=== PATIENT | male | born 1950 | race Caucasian/White ===

== ENCOUNTER 2021-12-28 14:49 | Outpatient (REF) | payer OTHER, SELFPAY ==
[2021-12-28 16:03] LABS: Hematocrit 54.1 % (42.0-52.0)
[2021-12-28 16:18] LABS: Urine Cytology See Pathology rpt
[2021-12-28 16:45] LABS: Prostate Specific Antigen 1.01 ng/mL (<0.05-4.0)
[2022-01-05 12:02] LABS: Testosterone, Total 2059 ng/dL (250-1100)
== END 2021-12-28 14:50 | disposition home or self-care (01) ==
LOC: HO.LAB 14:49
PROVIDERS: PCP Internal Medicine Endocrinology, Diabetes & Metabolism; Visit Provider Urology
DX: Z12.5 Encounter for screening for malignant neoplasm of prostate (principal); E29.1 Testicular hypofunction; N40.0 Benign prostatic hyperplasia without lower urinary tract symptoms; C67.9 Malignant neoplasm of bladder, unspecified
CPT/HCPCS: 36415; 84153; 84403; 85014; 88112; 99212

== ENCOUNTER → 2022-06-30 13:24 | Outpatient (BNVA) | payer OTHER, SELFPAY | PROVIDERS: PCP Internal Medicine Endocrinology, Diabetes & Metabolism; Visit Provider Urology | DX: E29.1 Testicular hypofunction (principal); C67.9 Malignant neoplasm of bladder, unspecified | CPT/HCPCS: Q3014 ==